=== PATIENT | female | born 1950 | race African-American/Black ===

== ENCOUNTER 2019-01-03 00:38 | Emergency (ER) | payer OTHER ==
[~2019-01-03] VITALS: Ht 162.6 cm; Wt 68.4 kg
[2019-01-03 00:40] VITALS: BP 177/88
[2019-01-03] MEDS ORDERED: KETOROLAC 30 MG/1 ML ONE (01:16)
[2019-01-03] MEDS ORDERED: KETOROLAC 30 MG/1 ML IM ONE (01:30)
== END 2019-01-03 02:22 | disposition home or self-care (01) ==
LOC: ED 02:01
DX: M17.11 Unilateral primary osteoarthritis, right knee (principal)
CPT/HCPCS: 73564; 96372; 99283; J1885

== ENCOUNTER 2019-03-19 17:07 | Emergency (ER) | payer SELFPAY ==
[~2019-03-19] VITALS: Ht 162.6 cm; Wt 65.0 kg
--- NOTE | 2019-03-19 17:50 | NUR ---
PT BROUGHT IN BY [facility]. PT SETTLED INTO BED. PT +EMESIS FOR [facility] ERP AWARE, ORDERS TO BE PLACED IF PT NEEDS. PT RESTING CALMLY IN BED, BILAT BEDRAILS UP. WILL CONTINUE TO MONITOR. P NOT COMPLAINING OF ANY PAIN AT THIS TIME.
[2019-03-19 18:17] VITALS: BP 127/67
--- NOTE | 2019-03-19 19:09 | NUR ---
REPORT TO ISSA CRANE. PT RESTING CALMLY IN BED AT THIS TIME.
--- NOTE | 2019-03-19 19:12 | NUR ---
REPORT FROM ROYCE COELHO. PT ARROUSABLE TO VOICE. PT AMBULATORY WO ASSISTANCE. TO BE DC.
--- NOTE | 2019-03-19 19:40 | NUR ---
given taxi john pt up ambulated to check out
== END 2019-03-19 19:42 | disposition home or self-care (01) ==
LOC: ED 19:08
DX: F10.229 Alcohol dependence with intoxication, unspecified (principal); M19.90 Unspecified osteoarthritis, unspecified site; W07.XXXA Fall from chair, initial encounter; Y93.89 Activity, other specified; Y92.488 Other paved roadways as the place of occurrence of the external cause; Y99.8 Other external cause status; Y90.9 Presence of alcohol in blood, level not specified
CPT/HCPCS: 99283

== ENCOUNTER → 2019-05-31 | Outpatient (CLI) | payer OTHER | END | disposition home or self-care (01) | LOC: CFH 09:47 | PROVIDERS: ATTEND Family Medicine Geriatric Medicine | DX: R92.1 Mammographic calcification found on diagnostic imaging of breast (principal); N60.11 Diffuse cystic mastopathy of right breast | CPT/HCPCS: 76642; 77066; G0279 ==

== ENCOUNTER → 2019-06-13 | Outpatient (CLI) | payer OTHER ==
[~2019-06-13] MED LIST: LIDOCAINE 1%, 20ML ONE; LIDOCAINE 1%-EPI 1:100K, 20ML ONE; SODIUM BICARBONATE 4.2%, 5ML ONE
== END | disposition home or self-care (01) ==
LOC: CFH 08:38
PROVIDERS: ATTEND Specialist
DX: N63.11 Unspecified lump in the right breast, upper outer quadrant (principal)
CPT/HCPCS: 76942; 88305; J3490

== ENCOUNTER 2019-09-13 12:28 | Outpatient (CLI) | payer OTHER | END 2019-09-13 23:59 | disposition home or self-care (01) | LOC: CFH 12:28 | PROVIDERS: ATTEND Family Medicine | DX: R92.8 Other abnormal and inconclusive findings on diagnostic imaging of breast (principal); N63.10 Unspecified lump in the right breast, unspecified quadrant | CPT/HCPCS: 76642; 77065; G0279 ==